=== PATIENT | male | born 1980 | race African-American/Black ===

== ENCOUNTER 2022-01-01 12:12 | Emergency (ER) | payer OTHER | END 2022-01-01 13:43 | disposition home or self-care (01) | LOC: MW.ED 12:12 | DX: S89.91XA Unspecified injury of right lower leg, initial encounter (principal); Z79.899 Other long term (current) drug therapy; X50.1XXA Overexertion from prolonged static or awkward postures, initial encounter | CPT/HCPCS: 73562-26-RT; 73562-RT; 99282; 99283 ==

== ENCOUNTER 2023-02-16 21:57 | Emergency (ER) | payer BC, OTHER ==
[2023-02-16 23:18] LABS: BASOPHILS ABSOLUTE AUTO 0.07 K/uL (0.00-0.20); BASOPHILS PERCENT AUTO 0.7 % (0.0-1.0); EOSINOPHILS ABSOLUTE AUTO 0.17 K/uL (0.00-0.45); EOSINOPHILS PERCENT AUTO 1.8 % (0.0-6.0); HEMATOCRIT 45.9 % (42.0-52.0); HEMOGLOBIN 15.2 g/dL (14.0-18.0); IMMATURE GRAN ABSOLUTE AUTO 0.02 K/uL (0.00-0.05); IMMATURE GRAN PERCENT AUTO 0.2 % (0.0-0.4); LYMPHOCYTES ABSOLUTE AUTO 3.22 K/uL (1.00-4.80); LYMPHOCYTES PERCENT AUTO 33.9 % (24.0-44.0); MEAN CORPUSCULAR HEMOGLOBIN 27.9 pg (28.0-32.0); MEAN CORPUSCULAR HGB CONC 33.1 g/dL (32.0-36.0); MEAN CORPUSCULAR VOLUME 84.2 fL (83.0-99.0); MEAN PLATELET VOLUME 10.7 fL (9.4-12.4); MONOCYTES ABSOLUTE AUTO 0.87 K/uL (0.00-0.80); MONOCYTES PERCENT AUTO 9.1 % (0.0-8.0); NEUTROPHILS ABSOLUTE AUTO 5.2 K/uL (1.8-7.7); NEUTROPHILS PERCENT AUTO 54.3 % (41.0-71.0); PLATELET COUNT,PLT 295 K/uL (150-400); RED BLOOD CELL COUNT 5.45 M/uL (4.52-5.90); WHITE BLOOD CELL COUNT,WBC 9.51 K/uL (3.9-11.3)
[2023-02-16] MEDS ORDERED: Sodium Chloride 0.9% 2.5 ML Syringe FLUSH PRN (23:35)
[2023-02-16] MEDS ORDERED: Sodium Chloride 0.9% 10 ML Syringe FLUSH PRN (23:35)
[2023-02-16] MEDS ORDERED: Lactated Ringers 1,000 ML IV ONE (23:36)
[2023-02-16 23:51] LABS: A/G RATIO 1.1 (0.9-1.6); BILIRUBIN TOTAL 0.4 mg/dL (0.2-1.0); CARBON DIOXIDE,CO2 24.3 mmol/L (21.0-32.0); CREATININE 1.4 mg/dL (0.8-1.3); EST CRCL DRUG DOSING (CG) 74.7 mL/min; POTASSIUM,K 3.8 mmol/L (3.5-5.1); PROTEIN TOTAL,TP 7.8 g/dL (6.4-8.2)
[2023-02-17 00:10] LABS: MAGNESIUM 1.9 mg/dL (1.8-2.4); TSH ULTRASENSITIVE 2.79 uIU/mL (0.36-3.74)
[2023-02-17] MEDS ORDERED: Metoprolol Tartrate 25 MG Tab PO ONE (00:43)
[2023-02-17] MEDS ORDERED: Rivaroxaban 10 MG Tab PO ONE (00:43)
[2023-02-17] MEDS ORDERED: Lactated Ringers 1,000 ML IV ONE (01:46)
== END 2023-02-17 03:09 | disposition home or self-care (01) ==
LOC: MW.ED 21:57
DX: I48.91 Unspecified atrial fibrillation (principal); Z79.899 Other long term (current) drug therapy
CPT/HCPCS: 36415; 80053; 83735; 83880; 84443; 84484; 85025; 85379; 93005; 96360; 96361; 99285; A9270; J3490; J7120; 93010; 99283

== ENCOUNTER 2023-05-31 10:30 | Emergency (ER) | payer BC ==
[2023-05-31] MEDS ORDERED: Sodium Chloride 0.9% 1,000 ML IV ONE (11:27)
[2023-05-31] MEDS ORDERED: Metoprolol Tartrate 25 MG Tab PO ONE (11:29)
[2023-05-31 11:44] LABS: BASOPHILS ABSOLUTE AUTO 0.06 K/uL (0.00-0.20); BASOPHILS PERCENT AUTO 0.9 % (0.0-1.0); EOSINOPHILS ABSOLUTE AUTO 0.13 K/uL (0.00-0.45); EOSINOPHILS PERCENT AUTO 1.9 % (0.0-6.0); HEMATOCRIT 51.2 % (42.0-52.0); HEMOGLOBIN 16.8 g/dL (14.0-18.0); IMMATURE GRAN ABSOLUTE AUTO 0.02 K/uL (0.00-0.05); IMMATURE GRAN PERCENT AUTO 0.3 % (0.0-0.4); LYMPHOCYTES ABSOLUTE AUTO 2.29 K/uL (1.00-4.80); LYMPHOCYTES PERCENT AUTO 34.1 % (24.0-44.0); MEAN CORPUSCULAR HEMOGLOBIN 28.1 pg (28.0-32.0); MEAN CORPUSCULAR HGB CONC 32.8 g/dL (32.0-36.0); MEAN CORPUSCULAR VOLUME 85.8 fL (83.0-99.0); MEAN PLATELET VOLUME 10.7 fL (9.4-12.4); MONOCYTES PERCENT AUTO 8.9 % (0.0-8.0); NEUTROPHILS ABSOLUTE AUTO 3.62 K/uL (1.80-7.70); NEUTROPHILS PERCENT AUTO 53.9 % (41.0-71.0); PLATELET COUNT,PLT 348 K/uL (150-400); RED BLOOD CELL COUNT 5.97 M/uL (4.52-5.90); WHITE BLOOD CELL COUNT,WBC 6.72 K/uL (3.9-11.3)
[2023-05-31 12:37] LABS: A/G RATIO 0.9 (0.9-1.6); ALBUMIN 3.7 g/dL (3.4-5.0); BILIRUBIN TOTAL 0.8 mg/dL (0.2-1.0); CALCIUM 9.3 mg/dL (8.5-10.1); CARBON DIOXIDE,CO2 28.6 mmol/L (21.0-32.0); CREATININE 1.4 mg/dL (0.8-1.3); EST CRCL DRUG DOSING (CG) 73.96 mL/min; POTASSIUM,K 4.6 mmol/L (3.5-5.1); TSH ULTRASENSITIVE 2.15 uIU/mL (0.36-3.74)
[2023-05-31] MEDS ORDERED: Iopamidol 755 MG/ML 500 ML Multipack Bottle IVPUSH STA (14:50)
[2023-05-31] MEDS ORDERED: Ibuprofen 600 MG Tab PO ONE (16:54)
== END 2023-05-31 17:18 | disposition home or self-care (01) ==
LOC: MW.ED 10:30
DX: R00.2 Palpitations (principal)
CPT/HCPCS: 36415; 71045; 71275; 80053; 84443; 85025; 85379; 93246; 96360; 99285; A9270; J7030; Q9967; 93010; 99284

== ENCOUNTER 2024-06-26 08:25 | Emergency (ER) | payer BC ==
[2024-06-26] MEDS: Ketorolac 30 MG/ML SDV IM ONE (08:50)
[2024-06-26] MEDS: Lidocaine 4% Patch TOP ONE (08:51)
[2024-06-26] MEDS: Acetaminophen 500 MG Tab PO ONE (08:51)
[2024-06-26] MEDS: Dexamethasone 4 MG Tab PO ONE (08:52)
== END 2024-06-26 11:01 | disposition home or self-care (01) ==
LOC: MW.ED 08:25
DX: S39.012A Strain of muscle, fascia and tendon of lower back, initial encounter (principal); M51.16 Intervertebral disc disorders with radiculopathy, lumbar region; I48.91 Unspecified atrial fibrillation; Z79.899 Other long term (current) drug therapy; Z79.01 Long term (current) use of anticoagulants; X58.XXXA Exposure to other specified factors, initial encounter
CPT/HCPCS: 72131; 93005; 96372; 99284; A9270; J1885; J8540; 93010; 99283